=== PATIENT | female | born 1955 | race Caucasian/White ===

== ENCOUNTER → 2016-05-13 | Outpatient (CLI) | payer OTHER | LOC: FIMAGING 09:58 | PROVIDERS: ATTEND Registered Nurse | DX: R05 Cough (principal) ==

== ENCOUNTER 2016-08-08 15:50 | Emergency (ER) | payer OTHER ==
[2016-08-08 16:11] VITALS: BP 135/62; PULSE 68; RESP 18; TEMP 98; O2SAT 97
--- NOTE | 2016-08-08 16:43 | EDPHY ---
H & P Time Seen by Provider: 08/08/16 16:42 HPI/ROS: Chief complaint. Thumb laceration HPI. 6-year-old female with laceration to her right thumb that occurred just prior to arrival. She was using a mandolin slicer to make a salad and was slicing tomatoes and onions. She accidentally sliced her right thumb. Bleeding was poorly controlled prior to arrival. No focal weakness or paresthesias. No other injuries. No sense of retained foreign body. Patient is left handed though was slicing with her right hand. She is unsure of tetanus status ROS Constitutional. no fever/chills, no weakness Eyes. no problems with vision ENT. no sore throat, no nasal drainage Cardiovascular. no chest pain Respiratory. no shortness of breath, no cough Abdominal. no abdominal pain, no nausea/vomiting, no diarrhea . no problems urinating MS. no calf pain/swelling, no neck/back pain, no joint pain Skin. Laceration right thumb Lymph. no swollen glands Neuro. no headache, no dizziness, no difficulty walking or with speech Past Medical/Surgical History: Past medical history is significant for hypothyroid, dyslipidemia, migraines Social History: Single, nonsmoker, no alcohol Smoking Status: Never smoked Physical Exam: General Appearance: Alert pleasant well-developed female mild distress vital signs are stable Eyes: Pupils equal and round no pallor or injection. ENT, Mouth: Mucous membranes are moist. Respiratory: There are no retractions, lungs are clear to auscultation. Cardiovascular: Regular rate and rhythm. Gastrointestinal: Abdomen is soft and nontender, no masses, bowel sounds normal. Neurological: Awake and alert, sensory and motor exams grossly normal. Skin: Half by 1.5 cm superficial but subcutaneous laceration to the medial aspect of the right thumb. Mild oozing of blood. No focal weakness or paresthesias. No evidence for foreign body. Musculoskeletal: Neck is supple nontender. Extremities symmetrical, full range of motion. Psychiatric: Patient is oriented X 3, there is no agitation. Constitutional: Initial Vital Signs Temperature (C) 36.6 C 08/08/16 16:08 Heart Rate 68 08/08/16 16:08 Respiratory Rate 18 08/08/16 16:08 Blood Pressure 135/62 H 08/08/16 16:08 O2 Sat (%) 97 08/08/16 16:08 O2 Delivery Mode Room Air Allergies/Adverse Reactions: tetracycline HCl [From Achromycin] Allergy (Intermediate, Verified 02/26/09 10: 51) Hives ENVIRONMENTAL Allergy (Mild, Uncoded 01/27/12 13:17) NASAL CONGESTION Home Medications: Medication Instructions Recorded *Pharmacist Completed 01/24/12 01/24/12 Beclomethasone Qvar 80 [Qvar 80 1 puffs IH BIDI 01/24/12 (RX)] Fexofenadine/Pseudoephedrine 1 each PO DAILY 01/24/12 [Mira-D 24 Hour Tablet] Fluticasone Nasal [Flonase Nasal 2 sprays EACH[place]ARE BID 01/24/12 [place] (RX)] Herbals/Supplements -Info Only 1 each PO AD 01/24/12 Levothyroxine [Synthroid 150 mcg 150 mcg PO DAILY06 01/24/12 (RX)] Multivitamins [Multivitamin (OTC)] 1 each PO DAILY 01/24/12 Niacin ER [Niaspan 1000 mg (RX)] 2,000 mg PO HS 01/24/12 OLOPATADINE HCL [Patanase] 30.5 gm EACHNARE BID 01/24/12 [place]-3 Fatty Acids [Fish Oil 1000 1,000 mg PO DAILY 01/24/12 mg (OTC)] Propranolol HCl [Inderal 40mg (RX)] 80 mg PO DAILY 01/24/12 Simvastatin [Zocor 20 mg (RX)] 20 mg PO HS 01/24/12 Sumatriptan Succinate 100 mg PO PRN PRN 01/24/12 cycloSPORINE 0.05% [Restasis Opht 1 drop EACHEYE BID 01/24/12 Drops(RX)] Lansoprazole [Lansoprazole 15 mg] 15 mg PO DAILY 01/27/12 Medical Decision Making ED Course/Re-evaluation: Wound is cleaned and dressed. Surgicel is applied and then bandage is applied. Bleeding is controlled. The patient will check with her PCP to check on tetanus status. She and I discussed treatment plan including criteria for return importance of follow-up and further evaluation. She expresses understanding and agreement Differential Diagnosis: Subcutaneous laceration with no tissue to so secondary to slice by mandoline slicer. I considered infection potential, retained foreign body. Departure - Departure Disposition: Home, Routine, Self-Care Clinical Impression: Laceration Condition: Good Instructions: Laceration Without Closure (ED) Additional Instructions: Leave the dressing and Surgicel material on for 24 hours. It is easier to remove it by soaking her thumb in warm water or water with half hydrogen peroxide. Subsequently gentle cleaning with washcloth and water. No soap or hydrogen peroxide. Then apply antibiotic ointment and Band-Aid until he healed. Dressing change each day. Return for signs of infection. Recheck with your regular physician to make sure your tetanus status is up-to-date. Referrals: Jossy Montano MD [Primary Care Provider] - 5-7 days, if not improved
== END 2016-08-08 17:08 | disposition home or self-care (01) ==
LOC: CED 15:50
DX: S61.011A Laceration without foreign body of right thumb without damage to nail, initial encounter (principal); W27.4XXA Contact with kitchen utensil, initial encounter; Y92.009 Unspecified place in unspecified non-institutional (private) residence as the place of occurrence of the external cause; Y99.8 Other external cause status; Y93.89 Activity, other specified

== ENCOUNTER → 2018-06-28 | Outpatient (CLI) | payer OTHER | LOC: CIMAGING 11:32 | PROVIDERS: ATTEND Family Medicine | DX: M25.861 Other specified joint disorders, right knee (principal); M25.862 Other specified joint disorders, left knee | CPT/HCPCS: 73564-PO ==